=== PATIENT | male | born 1970 | race Caucasian/White ===

== ENCOUNTER 2017-09-01 07:47 | Emergency (ER) | payer OTHER ==
[2017-09-01] MEDS ORDERED: INDOMETHACIN 25 MG CAPSULE PO STA (08:14)
[2017-09-01] MEDS ORDERED: oxyCOD/ACETAMIN 5 MG/325 MG TABLET PO STA (08:14)
--- NOTE | 2017-09-01 08:18 | ED Physician Documentation ---
History of Present Illness - Stated complaint Stated Complaint: FOOT PX - Chief complaint Chief Complaint: Ext Problem - Additonal information Additional information: hx from pt 46 male known hx gout R ankle painful and swollen typical of his gout no fever he has been taking his colchicine s relief he is out of indocin he may have injured it in [employer] as well otherwise no concerns Review of Systems Constitutional: denies: Fever Musculoskeletal: reports: Pain with weight bearing PD PAST MEDICAL HISTORY - Past Surgical History Past Surgical History: No - Present Medications Home Medications: Ambulatory Orders Medication Instructions Recorded Confirmed Indomethacin 25 mg ORAL TITR PRN 12/18/15 12/18/15 Colchicine 09/01/17 Indomethacin [Indocin] 25 - 50 mg PO Q8H PRN #30 capsule 09/01/17 - Allergies Allergies/Adverse Reactions: Allergies Allergy/AdvReac Type Severity Reaction Status Date / Time terbinafine HCl * Allergy Hives Verified 09/01/17 07:55 [From Lamisil] - Social History Does the pt smoke?: No Smoking Status: Never smoker PD ED PE NORMAL - Vitals Vital signs reviewed: Yes - Extremities Extremities: Other (R ankle: swollen, warm, no erythema, able to gently range without sig pain, calf does not appear swollen, + pedal pulse, + motor and sensation) Results - Vitals Vitals: Vital Signs - 24 hr 09/01/17 07:52 Temperature 36.8 C Heart Rate 86 Respiratory 16 Rate Blood Pressure 132/80 H O2 Saturation 97 Oxygen O2 Source Room air - Rads (name of study) ankle Radiology: See rad report (STS no bony abn) PD MEDICAL DECISION MAKING - ED course ED course: given possible injury in [employer] will check ankle xray will add incodn and rx fro same percocet X 1 in ED for acute pain until indocin can start to work do not think this is a septic jt (not red, no fever, able to gently range) Departure - Departure Disposition: 01 Home, Self Care Clinical Impression: Gout Qualifiers: Gout site: ankle Gout etiology: unspecified cause Chronicity: acute Laterality : right Qualified Code(s): M10.9 - Gout, unspecified Condition: Good Instructions: ED Arthritis Gout Follow-Up: Delmer Ross MD [Primary Care Provider] - Prescriptions: Indomethacin [Indocin] 25 - 50 mg PO Q8H PRN #30 capsule PRN Reason: gout pain Comments: The xray is fine - soft tissue swelling but no bone abnormalities This certainly looks like gout I thinking adding the indocin will help. Try to rest and minimize weight bearing as much as possible - perhaps use crutches for a few days Take the indocin with food. Follow up with your PMD if not better in the next few days Return to the ER if worse Forms: Activity restrictions
--- NOTE | 2017-09-01 09:01 | XRAY Report ---
EXAM: RIGHT ANKLE RADIOGRAPHY EXAM DATE: 09/01/2017 08:51 AM. CLINICAL HISTORY: Pain and swelling. COMPARISON: None. TECHNIQUE: 3 views. FINDINGS: Bones: No fracture or focal osseous lesion. Joints: Minimal degenerative change. No effusion. No subluxations. The ankle mortise is normally alig emilie. Soft Tissues: Diffuse soft tissue swelling, pronounced laterally. IMPRESSION: No acute osseous abnormality. [facility] Referring Provider Line: [phone] SITE ID: [id number]
[2017-09-01 09:44] VITALS: BP 138/81
== END 2017-09-01 09:51 | disposition home or self-care (01) ==
LOC: ED 07:47
DX: M10.9 Gout, unspecified (principal)
CPT/HCPCS: 73610; 99283; A9270

== ENCOUNTER 2018-07-13 10:02 | Emergency (ER) | payer OTHER ==
[2018-07-13 10:08] VITALS: BP 154/83
--- NOTE | 2018-07-13 10:59 | ED Physician Documentation ---
PD HPI SKIN - Stated complaint Stated Complaint: LT ANKLE SWELLING - Chief complaint Chief Complaint: Ext Problem - History obtained from History obtained from: Patient - History of Present Illness Timing - onset: How many days ago (2-3) Timing - duration: Days (2-3) Timing - details: Abrupt onset, Still present, Constant Location: LLE (lateral ankle) Quality / character: Painful, Discolored (red) Associated symptoms: No: Fever, Myalgias, N/V/D Contributing factors: Recent illness (had URI symptoms last week, but is improved). No: Exposed to food (had not eaten gout-inducing type foods. No recent change in meds.) Similar symptoms before: Diagnosis (gout - and has taken his colcrys and indocin the past 2-3 days without improvement. Takes them just once daily since can upset his stomach.) Recently seen: Not recently seen Review of Systems Constitutional: denies: Fever, Chills GI: denies: Nausea, Vomiting, Diarrhea, Bloody / black stool Musculoskeletal: reports: Joint pain PD PAST MEDICAL HISTORY - Past Medical History Cardiovascular: None Respiratory: None Neuro: None Endocrine/Autoimmune: None Musculoskeletal: Gout - Past Surgical History Past Surgical History: No - Present Medications Home Medications: Ambulatory Orders Medication Instructions Recorded Confirmed Colchicine 1 tab PO DAILY 09/01/17 07/13/18 Indomethacin [Indocin] 25 - 50 mg PO Q8H PRN #30 capsule 09/01/17 07/13/18 Allopurinol [Zyloprim] 200 mg PO DAILY 07/13/18 07/13/18 Dexamethasone [Decadron] 4 mg PO DAILY #5 tablet 07/13/18 Hydrocodone/Acetaminophen [[place] 1 - 2 each PO Q6H PRN #20 tablet 07/13/18 5-325 Tablet] Ondansetron Odt [Zofran] 4 mg TL Q6H PRN #10 tablet 07/13/18 - Allergies Allergies/Adverse Reactions: Allergies Allergy/AdvReac Type Severity Reaction Status Date / Time terbinafine HCl * Allergy Hives Verified 07/13/18 10:08 [From Lamisil] - Social History Does the pt smoke?: No Smoking Status: Never smoker PD ED PE NORMAL - Vitals Vital signs reviewed: Yes - General General: Alert and oriented X 3, Well developed/nourished, Other (apears in pain) - Derm Derm: Normal color, Warm and dry - Extremities Extremities: Other (left lateral malleolus with rounded area of redness and swelling over the joint. Does not extend beyond. Very tender. No skin lesions there. Small scrape of skin higher on leg without redness at that. ) - Neuro Neuro: No motor deficit, No sensory deficit Results - Vitals Vitals: Vital Signs - 24 hr 07/13/18 10:05 Temperature 36.3 C L Heart Rate 83 Respiratory 20 Rate Blood Pressure 154/83 H O2 Saturation 98 Oxygen O2 Source Room air PD MEDICAL DECISION MAKING - ED course Complexity details: considered differential (seems likely gout and has had similar in the past. He is doing the colchicine and idnocin just once daily. Can increase that, and also add steroids and pain meds. ), d/w patient Departure - Departure Disposition: 01 Home, Self Care Clinical Impression: Exacerbation of gout Condition: Stable Record reviewed to determine appropriate education?: Yes Instructions: ED Arthritis Gout Follow-Up: DM MOORE MD [Primary Care Provider] - Prescriptions: Dexamethasone [Decadron] 4 mg PO DAILY #5 tablet Hydrocodone/Acetaminophen [[place] 5-325 Tablet] 1 - 2 each PO Q6H PRN #20 tablet PRN Reason: Pain Ondansetron Odt [Zofran] 4 mg TL Q6H PRN #10 tablet PRN Reason: Nausea / Vomiting Comments: Drink lots of fluids. Ondansetron if needed for nausea. You could use some antacid such as Maalox or Mylanta if your stomach feels upset. Take your medications with food. I would increase the colchicine and indomethacin to twice daily. Add Decadron steroid anti-inflammatory daily for the next several days as well. Add hydrocodone if needed for pain. Stay off the allopurinol until this gout flareup has cleared and then resume the normal dosing. Recheck if still not improved over the next couple of days. Discharge Date/Time: 07/13/18 12:03
--- NOTE | 2018-07-13 10:59 | ED Physician Documentation ---
PD HPI DYSPNEA - Stated complaint Stated Complaint: LT ANKLE SWELLING - Chief complaint Chief Complaint: Ext Problem PD PAST MEDICAL HISTORY - Past Surgical History Past Surgical History: No - Present Medications Home Medications: Ambulatory Orders Medication Instructions Recorded Confirmed Colchicine 1 tab PO DAILY 09/01/17 07/13/18 Indomethacin [Indocin] 25 - 50 mg PO Q8H PRN #30 capsule 09/01/17 07/13/18 Allopurinol [Zyloprim] 200 mg PO DAILY 07/13/18 07/13/18 - Allergies Allergies/Adverse Reactions: Allergies Allergy/AdvReac Type Severity Reaction Status Date / Time terbinafine HCl * Allergy Hives Verified 07/13/18 10:08 [From Lamisil] - Social History Does the pt smoke?: No Smoking Status: Never smoker Results - Vitals Vitals: Vital Signs - 24 hr 07/13/18 10:05 Temperature 36.3 C L Heart Rate 83 Respiratory 20 Rate Blood Pressure 154/83 H O2 Saturation 98 Oxygen O2 Source Room air
[2018-07-13] MEDS ORDERED: HYDROcod/ACETAM 5/325 MG TABLET PO STA (11:21)
[2018-07-13] MEDS ORDERED: DEXAMETHASONE 10 MG/ML VIAL PO STA (11:21)
[2018-07-13] MEDS ORDERED: ONDANSETRON ODT 4 MG TABLET TL STA (11:22)
[2018-07-13] MEDS ORDERED: CHERRY SYRUP 10 ML UDC PO ONE (11:38)
== END 2018-07-13 12:03 | disposition home or self-care (01) ==
LOC: ED 10:02
DX: M10.9 Gout, unspecified (principal)
CPT/HCPCS: 99283; A9270; Q0162

== ENCOUNTER 2019-03-01 07:59 | Emergency (ER) | payer OTHER ==
[2019-03-01] MEDS ORDERED: CYCLOBENZAPRINE 10 MG TABLET PO STA (08:18)
[2019-03-01] MEDS ORDERED: HYDROcod/ACETAM 5/325 MG TABLET PO STA (08:18)
--- NOTE | 2019-03-01 08:22 | ED Physician Documentation ---
History of Present Illness - Stated complaint Stated Complaint: SHOULDER PX - Chief complaint Chief Complaint: Ext Problem - History obtained from History obtained from: Patient, Family - History of Present Illness Timing: How many days ago (2) Pain level max: 7 Pain level now: 7 - Additonal information Additional information: 48-year-old male with left shoulder pain for the past 2 days. Worse with movement and better with rest. States that he feels a bump on the top of his shoulder. Denies any trauma. Has had similar symptoms in the past. Has been taking ibuprofen without relief. Review of Systems Constitutional: denies: Fever, Chills GI: denies: Vomiting, Diarrhea Skin: denies: Rash Musculoskeletal: denies: Neck pain, Back pain Neurologic: denies: Headache PD PAST MEDICAL HISTORY - Past Medical History Cardiovascular: None Respiratory: None Neuro: None Endocrine/Autoimmune: None Musculoskeletal: Gout - Past Surgical History Past Surgical History: No - Present Medications Home Medications: Ambulatory Orders Medication Instructions Recorded Confirmed Indomethacin [Indocin] 25 - 50 mg PO Q8H PRN #30 capsule 09/01/17 07/13/18 Allopurinol [Zyloprim] 200 mg PO DAILY 07/13/18 07/13/18 Cyclobenzaprine [Flexeril] 10 mg PO TID PRN #20 tablet 03/01/19 Hydrocodone/Acetaminophen 1 - 2 each PO Q6H PRN #14 tablet 03/01/19 [Hydrocodon-Acetaminophen 5-325] Meloxicam [Mobic] 15 mg PO DAILY PRN #20 tablet 03/01/19 - Allergies Allergies/Adverse Reactions: Allergies Allergy/AdvReac Type Severity Reaction Status Date / Time terbinafine HCl * Allergy Hives Verified 03/01/19 08:03 [From Lamisil] - Social History Does the pt smoke?: No Smoking Status: Never smoker PD ED PE NORMAL - Vitals Vital signs reviewed: Yes - General General: Alert and oriented X 3, No acute distress - HEENT HEENT: Moist mucous membranes - Neck Neck: Supple, no meningeal sign - Derm Derm: Warm and dry - Extremities Extremities: Other (Tender to palpation over the left AC joint. Also tender over the trapezial ridge. Shoulder has good internal and external rotation. There is pain with abduction of the arm. Neurovascularly intact.) - Neuro Neuro: Alert and oriented X 3 - Psych Psych: Normal mood, Normal affect Results - Vitals Vitals: Vital Signs - 24 hr 03/01/19 08:01 Temperature 36 C L Heart Rate 73 Respiratory 18 Rate Blood Pressure 142/77 H O2 Saturation 99 Oxygen O2 Source Room air - Rads (name of study) Left shoulder x-ray Radiology: Prelim report reviewed, EMP read contemporaneously, See rad report (normal) PD MEDICAL DECISION MAKING - ED course Complexity details: reviewed results, re-evaluated patient, considered differential, d/w patient, d/w family ED course: 48-year-old male with left shoulder pain. Possible muscular spasm versus rotator cuff inflammation. No acute findings on x-ray. Will place on pain medication muscle relaxants for home and follow-up with his doctor for further c are. Patient counseled regarding signs and symptoms for which I believe and urgent re-evaluation would be necessary. Patient with good understanding of and agreement to plan and is comfortable going home at this time This document was made in part using voice recognition software. While efforts are made to proofread this document, sound alike and grammatical errors may occur. Departure - Departure Disposition: 01 Home, Self Care Clinical Impression: Muscle spasm of left shoulder Condition: Good Instructions: ED Tendinitis Rotator Cuff Follow-Up: DM MOORE MD [Primary Care Provider] - Within 1 week Prescriptions: Cyclobenzaprine [Flexeril] 10 mg PO TID PRN #20 tablet PRN Reason: Spasms Hydrocodone/Acetaminophen [Hydrocodon-Acetaminophen 5-325] 1 - 2 each PO Q6H PRN #14 tablet PRN Reason: pain Meloxicam [Mobic] 15 mg PO DAILY PRN #20 tablet PRN Reason: pain Comments: This should improve over the next few days. Return if you worsen. Follow-up with your doctor for further care. Your x-ray does not show any acute abnormalities today. Do not drink alcohol or drive while on narcotic pain medicine. Note that many narcotic pain relievers also contain tylenol/acetaminophen. Please ensure that your total dose of acetaminophen from all sources does not exceed 3 grams (3000mg) per day. You may constipated on this medication, take a stool softener such as "Colace" twice a day while you are on it. Also recommend a yxzb-ehh-egnoiez laxative such as senna or MiraLAX any day that you do not have a bowel movement. If you received narcotic pain medication in the emergency department, do not drive or operate machinery for the next 24 hours.
--- NOTE | 2019-03-01 08:51 | XRAY Report ---
Reason: L shoulder pain. no injury Procedure Date: 03/01/2019 Accession Number: [id number] / [id number] Procedure: XR - Shoulder 3 View LT CPT Code: FULL RESULT: EXAM: LEFT SHOULDER RADIOGRAPHY EXAM DATE: 03/01/2019 08:31 AM. CLINICAL HISTORY: L shoulder pain. no injury. COMPARISON: None. TECHNIQUE: 3 views. FINDINGS: Bones: No fractures or bone lesions. Joints: Mild AC joint DJD. Glenohumeral joint appears preserved. Soft Tissues: Unremarkable. IMPRESSION: 1. No acute osseous abnormality. [facility]
[2019-03-01 09:10] VITALS: BP 128/78
== END 2019-03-01 09:05 | disposition home or self-care (01) ==
LOC: ED 07:59
DX: M62.838 Other muscle spasm (principal)
CPT/HCPCS: 73030; 99283; 99284; A9270

== ENCOUNTER 2021-01-19 19:26 | Emergency (ER) | payer OTHER ==
[2021-01-19] MEDS ORDERED: HYDROmorphone 1 MG/ML CARPUJECT IM STA (20:15)
[2021-01-19] MEDS ORDERED: KETOROLAC 15 MG/ML VIAL IM STA (20:15)
--- NOTE | 2021-01-19 20:19 | ED Physician Documentation ---
PD HPI BACK PAIN - Stated complaint Stated Complaint: LOW BACK PX - Chief complaint Chief Complaint: Back Pain - History obtained from History obtained from: Patient - Additional information Additional information: Developed atraumatic left low back pain that radiates a little bit into the buttock 2 days ago. Worsened today. Worse with bending and twisting. No urinary complaints, no incontinence. No saddle anesthesia, no fevers. Review of Systems Constitutional: reports: Reviewed and negative Eyes: reports: Reviewed and negative Ears: reports: Reviewed and negative Nose: reports: Reviewed and negative Throat: reports: Reviewed and negative Cardiac: reports: Reviewed and negative PD PAST MEDICAL HISTORY - Past Medical History Past Medical History: Yes Cardiovascular: Hypertension Respiratory: None Neuro: None Endocrine/Autoimmune: None GI: None : None HEENT: None Psych: None Musculoskeletal: Osteoarthritis, Gout Derm: None - Past Surgical History Past Surgical History: No - Present Medications Home Medications: Ambulatory Orders Medication Instructions Recorded Confirmed Indomethacin [Indocin] 25 - 50 mg PO Q8H PRN #30 capsule 09/01/17 07/13/18 allopurinoL [Zyloprim] 200 mg PO DAILY 07/13/18 07/13/18 Cyclobenzaprine [Flexeril] 10 mg PO TID PRN #20 tablet 03/01/19 Hydrocodone/Acetaminophen 1 - 2 each PO Q6H PRN #14 tablet 03/01/19 [Hydrocodon-Acetaminophen 5-325] Meloxicam [Mobic] 15 mg PO DAILY PRN #20 tablet 03/01/19 HYDROcod/ACETAM 5/325 [[place] 5/325] 1 ea PO DAILY #5 tablet 02/25/20 Cyclobenzaprine [Flexeril] 10 mg PO TID PRN #10 tablet 01/19/21 HYDROcod/ACETAM 5/325 [[place] 5/325] 1 - 2 tab PO Q6H PRN #15 tablet 01/19/21 Ibuprofen [Motrin] 800 mg PO Q8H PRN #30 tablet 01/19/21 Lidocaine Patch 5% [Lidoderm Patch] 1 patch TOP DAILY PRN #10 patch 01/19/21 - Allergies Allergies/Adverse Reactions: Allergies Allergy/AdvReac Type Severity Reaction Status Date / Time terbinafine HCl * Allergy Hives Verified 01/19/21 19:35 [From Lamisil] - Social History Does the pt smoke?: No Smoking Status: Never smoker Does the pt drink ETOH?: Yes Does the pt have substance abuse?: No - Immunizations Immunizations are current?: No Immunizations: TDAP >10years/unknown - POLST Patient has POLST: No PD ED PE NORMAL - Vitals Vital signs reviewed: Yes - General General: Alert and oriented X 3, No acute distress - Abdomen Abdomen: Non tender, Non distended - Back Back: Other (Muscular tenderness of the left paralumbar muscles, winces with motion but comfortable at rest, no midline spinal tenderness, no rash, no CVA tenderness.) - Extremities Extremities: Other (The patient has equal and normal Achilles and patellar reflexes bilaterally. Normal sensation in all areas of the legs. Patient denies saddle anesthesia. Normal strength in flexion-extension at the ankles, knees, and flexion of the hips.) - Neuro Neuro: Alert and oriented X 3, Normal speech Results - Vitals Vitals: Vital Signs - 24 hr 01/19/21 19:33 Temperature 36.4 C L Heart Rate 71 Respiratory 16 Rate Blood Pressure 169/95 H O2 Saturation 98 Oxygen O2 Source Room air PD MEDICAL DECISION MAKING - ED course ED course: This patient has seemingly uncomplicated musculoskeletal back pain. The patient has no "red flags." Specifically denies IV drug use, fevers, incontinence, saddle anesthesia. Spinal epidural abscess was considered, given that the patient has no fever, is not diabetic, has no spinal tenderness, does not use IV drugs, and has no bilateral neurologic symptoms, the diagnosis of spinal epidural abscess is considered exceedingly unlikely. I am prescribing a short course of short-acting opioid pain medication for this patient. I have reviewed the patients DESK ATTENDANT and no concerning findings were noted. I have discussed that the opioids are for short term therapy only, and will not be refilled from the ED. Departure - Departure Disposition: 01 Home, Self Care Clinical Impression: Back pain Condition: Good Record reviewed to determine appropriate education?: Yes Instructions: ED Neck Back Pain General Prescriptions: Cyclobenzaprine [Flexeril] 10 mg PO TID PRN #10 tablet PRN Reason: Spasms Lidocaine Patch 5% [Lidoderm Patch] 1 patch TOP DAILY PRN #10 patch PRN Reason: pain Ibuprofen [Motrin] 800 mg PO Q8H PRN #30 tablet PRN Reason: PAIN &/OR FEVER HYDROcod/ACETAM 5/325 [[place] 5/325] 1 - 2 tab PO Q6H PRN #15 tablet PRN Reason: Pain Comments: Call your doctor to arrange a follow-up appointment, make the next available appointment. In the interim, return anytime if worse or if new symptoms develop. I am prescribing a short course of narcotic pain medication for you. These are potentially dangerous and addictive medications that should be used carefully. These medications may constipate you. Take an ebwl-rod-qthqdho stool softener (docusate) twice daily with plenty of water while taking these medications. If you go 24 hours without a bowel movement, take exln-ilu-czitchw miralax, per package instructions. Do not drink or drive while taking these medications. If you received narcotic or sedating medications while in the emergency department, do not drive for 24 hours. Store this medication in a safe, secure place and out of reach of children. It is a violation of federal law to give or sell this medication to another person or to use in a manner other than prescribed. The ED will not refill narcotic prescriptions, including prescriptions lost or stolen. To dispose of unwanted medications: 1. [facility] at [address] in [place] has a medication drop box. They accept prescription medications (in pill form) Saturday through Saturday 9:00 a.m. to 5:00 p.m. 2. The [facility] [employer] accepts prescription medications (in pill form only) for disposal year round. Call for more information. 3. Contact the [facility] for the next [facility] sponsored prescription drug collection event. , [phone], or [phone]; Note that many narcotic pain relievers also contain Tylenol/acetaminophen. Please ensure that your total dose of acetaminophen from all sources does not exceed 3 g (3000 mg) per day. Forms: Activity restrictions
[2021-01-19 20:34] VITALS: BP 155/87
== END 2021-01-19 20:34 | disposition home or self-care (01) ==
LOC: ED 19:26
DX: M54.5 Low back pain (principal); I10 Essential (primary) hypertension
CPT/HCPCS: 96372; 99283; 99284; J1170

== ENCOUNTER 2021-08-10 08:02 | Emergency (ER) | payer OTHER ==
--- NOTE | 2021-08-10 08:12 | ED Physician Documentation ---
PD HPI LOWER EXT INJURY - Stated complaint Stated Complaint: LT KNEE PX - Chief complaint Chief Complaint: Ext Problem - History obtained from History obtained from: Patient - History of Present Illness PD HPI LOW EXT INJURY LOCATION: Left, Knee Type of injury: Other (He did do a lot of yard work on Saturday without any apparent injury during that time. Onset of knee pain later that night and following day feeling consistent with prior gout.). No: Fall, Twist Where injury occurred: Home Timing - onset: How many days ago (5) Timing - duration: Days (5) Timing - details: Gradual onset, Still present Improved by: Rest. No: Meds Worsened by: Moving, Palpating Associated symptoms: Swelling, Other (he denies locking, clicking nor giving out.). No: Weakness, Numbness Similar symptoms before: Diagnosis (gout episodes in the past) Recently seen: Clinic (He went to [facility] 3 days ago. Had an x-ray which he says showed some arthritis. They are concerned about possible ligament injury. He has knee brace. No medications prescribed. However he was taking indomethacin twice daily and colchicine daily the last 3 days without improvement.) Review of Systems Constitutional: denies: Fever, Chills Nose: denies: Rhinorrhea / runny nose, Congestion Throat: denies: Dental pain / toothache, Oral lesions / sores, Sore throat Respiratory: denies: Cough GI: denies: Vomiting, Diarrhea (but has loose stools after starting the colchicine daily.) Skin: denies: Rash, Lesions PD PAST MEDICAL HISTORY - Past Medical History Cardiovascular: Hypertension Respiratory: None Neuro: None Endocrine/Autoimmune: None GI: None : None HEENT: None Psych: None Musculoskeletal: Osteoarthritis, Gout Derm: None - Past Surgical History Past Surgical History: No - Present Medications Home Medications: Ambulatory Orders Medication Instructions Recorded Confirmed Indomethacin [Indocin] 25 - 50 mg PO Q8H PRN #30 capsule 09/01/17 07/13/18 allopurinoL [Zyloprim] 200 mg PO DAILY 07/13/18 07/13/18 Cyclobenzaprine [Flexeril] 10 mg PO TID PRN #20 tablet 03/01/19 Hydrocodone/Acetaminophen 1 - 2 each PO Q6H PRN #14 tablet 03/01/19 [Hydrocodon-Acetaminophen 5-325] Meloxicam [Mobic] 15 mg PO DAILY PRN #20 tablet 03/01/19 HYDROcod/ACETAM 5/325 [[place] 5/325] 1 ea PO DAILY #5 tablet 02/25/20 Cyclobenzaprine [Flexeril] 10 mg PO TID PRN #10 tablet 01/19/21 HYDROcod/ACETAM 5/325 [[place] 5/325] 1 - 2 tab PO Q6H PRN #15 tablet 01/19/21 Ibuprofen [Motrin] 800 mg PO Q8H PRN #30 tablet 01/19/21 Lidocaine Patch 5% [Lidoderm Patch] 1 patch TOP DAILY PRN #10 patch 01/19/21 Acetaminophen [Acetaminophen Extra 500 mg PO QID PRN #50 tablet 08/10/21 Strength] Colchicine 0.6 mg PO BID PRN #14 tablet 08/10/21 dexAMETHasone [Decadron] 4 mg PO DAILY #7 tablet 08/10/21 oxyCODONE [Roxicodone] 5 mg PO Q6H PRN #15 tablet 08/10/21 - Allergies Allergies/Adverse Reactions: Allergies Allergy/AdvReac Type Severity Reaction Status Date / Time terbinafine HCl * Allergy Hives Verified 08/10/21 08:12 [From Lamisil] - Social History Does the pt smoke?: No Smoking Status: Never smoker Does the pt drink ETOH?: Yes Does the pt have substance abuse?: No - Immunizations Immunizations are current?: No Immunizations: TDAP >10years/unknown - POLST Patient has POLST: No PD ED PE NORMAL - Vitals Vital signs reviewed: Yes - General General: Alert and oriented X 3, Well developed/nourished, Other (appears in pain with ROM of the knee.) - Derm Derm: Normal color, Warm and dry, No rash - Extremities Extremities: Other (The left knee with some mild to moderate effusion. There is warmth felt anteriorly. No redness. No skin sores nor lesions. Stress testing had pain with cruciate testing but no obvious laxity. Collateral testing witho ut pain or laxity. Rotational movement hurts but no crepitance or clicking.) - Neuro Neuro: Alert and oriented X 3, No motor deficit, No sensory deficit Results - Vitals Vitals: Vital Signs - 24 hr 08/10/21 08:10 Temperature 36.6 C Heart Rate 89 Respiratory 16 Rate Blood Pressure 164/84 H O2 Saturation 97 Oxygen O2 Source Room air PD MEDICAL DECISION MAKING - ED course Complexity details: reviewed results ([facility] so I did not see a reason for redoing those.), re-evaluated patient (He has not had improvement with indomethacin and colchicine and light duty for the last several days. We can change to steroid with colchicine and add Tylenol and pain medicine as needed with off work for 2 days.), considered differential (This seems likely to be a gout or arthritis/tendonitis flareup. Most likely gout with the degree of pain. Consideration of some of the ligaments in the knee but this seem sturdy on exam though it hurts. No abrupt injury noted.), d/w patient Departure - Departure Disposition: 01 Home, Self Care Clinical Impression: Knee pain, acute Qualifiers: Laterality: left Qualified Code(s): M25.562 - Pain in left knee Gout attack Qualifiers: Gout site: knee Gout etiology: unspecified cause Laterality: left Qualified Code(s): M10.9 - Gout, unspecified Condition: Stable Record reviewed to determine appropriate education?: Yes Instructions: ED Arthritis Gout Follow-Up: [facility] [Provider Group] Prescriptions: Acetaminophen [Acetaminophen Extra Strength] 500 mg PO QID PRN #50 tablet PRN Reason: Pain Colchicine 0.6 mg PO BID PRN #14 tablet PRN Reason: Pain dexAMETHasone [Decadron] 4 mg PO DAILY #7 tablet oxyCODONE [Roxicodone] 5 mg PO Q6H PRN #15 tablet PRN Reason: Pain Comments: This does seem likely to be a gout exacerbation or tendinitis in the knee. The knee brace you have is reasonable. I would have you continue the colchicine once or twice daily for the next few days. Discontinue your indomethacin and instead use dexamethasone daily for the next week. This is a steroid anti-inflammatory and see if it helps better on this flareup. Off work for couple of days to help reduce movement and irritation of the knee. Tylenol 500 mg 4 times a day for pain and add oxycodone every 6 hours if needed for worse pain. I transmitted your prescriptions to [facility] pharmacy in [place]. I am prescribing a short course of narcotic pain medication for you. These are potentially dangerous and addictive medications that should be used carefully. These medications may constipate you. Take an [id number] stool softener such as docusate twice daily with plenty of water while taking these medicat ions. If you go 24 hours without a bowel movement, take [id number] MiraLAX, per package instructions. Do not drink or drive while taking these medications. If you received narcotic or sedating medications while in the emergency department do not drive for 24 hours. Store this medication in a safe, secure place and out of reach of children. It is a violation of federal law to give or sell this medication to another person or to use in a manner other than prescribed. The ED will not refill narcotic prescriptions, including prescriptions lost or stolen. You can dispose of unwanted medications at the [facility] office or at several pharmacies such as [facility]. Forms: Activity restrictions
[2021-08-10 08:13] VITALS: BP 164/84
[2021-08-10] MEDS ORDERED: DEXAMETHASONE 10 MG/ML VIAL PO STA (08:40)
[2021-08-10] MEDS ORDERED: CHERRY SYRUP 10 ML UDC PO ONE (08:40)
[2021-08-10] MEDS ORDERED: oxyCODONE 5 MG TABLET PO STA (08:40)
[2021-08-10] MEDS ORDERED: ACETAMINOPHEN 500 MG TABLET PO STA (08:40)
== END 2021-08-10 08:51 | disposition home or self-care (01) ==
LOC: ED 08:02
DX: M25.562 Pain in left knee (principal); M10.9 Gout, unspecified; I10 Essential (primary) hypertension
CPT/HCPCS: 99283; 99284; A9270

== ENCOUNTER 2022-05-12 23:35 | Emergency (ER) | payer OTHER ==
[2022-05-13 00:03] VITALS: BP 156/78
[2022-05-13] MEDS ORDERED: LIDOCAINE PATCH 5% TOP STA (01:10)
[2022-05-13] MEDS ORDERED: oxyCODONE/ACET 5/325 Prepack 4 PO STA (01:10)
[2022-05-13] MEDS ORDERED: predniSONE 20 MG TABLET PO STA (01:10)
--- NOTE | 2022-05-13 01:20 | ED Physician Documentation ---
History of Present Illness - Stated complaint Stated Complaint: R KNEE PX - Chief complaint Chief Complaint: Ext Problem - History obtained from History obtained from: Patient - Additonal information Additional information: Patient presenting for evaluation of right knee pain that is been present since yesterday. He reports a history of gout and normally gets gout in his left knee. He denies any injury or trauma.This feels similar to previous episodes of gout. He is unsure of any recent triggers. He did have 1 oxycodone left from a prior prescription which she took today along with colchicine and indomethacin. He denies any fevers. He recently has had a URI symptoms with a cough which has been improving. He denies chest pain, difficulty breathing, abdominal pain, Recent travel or immobilization, history of DVT. Review of Systems Constitutional: denies: Fever Nose: denies: Congestion Cardiac: denies: Chest pain / pressure Respiratory: reports: Cough. denies: Dyspnea GI: denies: Abdominal Pain Musculoskeletal: reports: Joint pain Neurologic: denies: Headache PD PAST MEDICAL HISTORY - Past Medical History Past Medical History: Yes Cardiovascular: Hypertension Respiratory: None Neuro: None Endocrine/Autoimmune: None GI: None : None HEENT: None Psych: None Musculoskeletal: Osteoarthritis, Gout Derm: None - Past Surgical History Past Surgical History: No - Present Medications Home Medications: Ambulatory Orders Medication Instructions Recorded Confirmed Indomethacin [Indocin] 25 - 50 mg PO Q8H PRN #30 capsule 09/01/17 05/13/22 Colchicine 0.6 mg PO BID PRN #14 tablet 08/10/21 05/13/22 oxyCODONE [Roxicodone] 5 mg PO Q6H PRN #15 tablet 08/10/21 05/13/22 Lidocaine Patch 5% [Lidoderm Patch] 1 patch TOP DAILY PRN #10 patch 05/13/22 Oxycodone HCl/Acetaminophen 1 - 2 each PO Q6H PRN #14 tablet 05/13/22 [Percocet 5-325 mg Tablet] predniSONE [Deltasone] 40 mg PO DAILY 5 Days #10 tablet 05/13/22 - Allergies Allergies/Adverse Reactions: Allergies Allergy/AdvReac Type Severity Reaction Status Date / Time terbinafine HCl * Allergy Hives Verified 05/13/22 00:03 [From Lamisil] - Social History Does the pt smoke?: No Smoking Status: Never smoker Does the pt drink ETOH?: Yes Does the pt have substance abuse?: No - Immunizations Immunizations are current?: No Immunizations: TDAP >10years/unknown - POLST Patient has POLST: No PD ED PE NORMAL - General General: Alert and oriented X 3, No acute distress, Well developed/nourished - HEENT HEENT: Atraumatic, Moist mucous membranes - Neck Neck: Supple, no meningeal sign - Cardiac Cardiac: RRR, Strong equal pulses - Respiratory Respiratory: No respiratory distress, Clear bilaterally - Abdomen Abdomen: Soft, Non tender - Extremities Extremities: No deformity, No calf tenderness / cord, Other (R knee swelling/no erythema; able to fully extend; Pain with flexion; Pedal pulses intact) Results - Vitals Vitals: Vital Signs - 24 hr 05/12/22 23:55 Temperature 36.6 C Heart Rate 62 Respiratory 16 Rate Blood Pressure 156/78 H O2 Saturation 98 Oxygen O2 Source Room air PD MEDICAL DECISION MAKING - ED course ED course: Patient with atraumatic right knee pain.Has swelling localized to right knee and not elsewhere in extremity. No risk factors for DVT and no calf tenderness. No fever or erythema to suggest a septic joint. Has a history of gout with similar presentations in the past although with the other knee.Patient counseled on treatment plan as well as concerning symptoms to return for. Departure - Departure Disposition: 01 Home, Self Care Clinical Impression: Right knee pain Qualifiers: Chronicity: acute Qualified Code(s): M25.561 - Pain in right knee Gout attack Qualifiers: Gout site: knee Gout etiology: unspecified cause Condition: Stable Instructions: Gout Attack Tx Prescriptions: predniSONE [Deltasone] 40 mg PO DAILY 5 Days #10 tablet Lidocaine Patch 5% [Lidoderm Patch] 1 patch TOP DAILY PRN #10 patch PRN Reason: pain Oxycodone HCl/Acetaminophen [Percocet 5-325 mg Tablet] 1 - 2 each PO Q6H PRN #14 tablet PRN Reason: pain Comments: Please use the knee immobilizer and crutches to stay off your right leg while you still are having pain. I have sent prescriptions for pain medication, steroids and lidocaine patches to [facility] in [place].Please continue with using indomethacin times a day And colchicine twice a day until your symptoms improve. I would recommend close follow-up with your primary care doctor. If you have any worsening symptoms please consider return to the emergency department. Discharge Date/Time: 05/13/22 01:40
== END 2022-05-13 01:40 | disposition home or self-care (01) ==
LOC: ED 23:35
DX: M25.561 Pain in right knee (principal); M10.9 Gout, unspecified
CPT/HCPCS: 99283; A9270; J7512

== ENCOUNTER 2022-07-27 21:07 | Emergency (ER) | payer OTHER ==
--- OUTSIDE RECORDS SUMMARY | 2022-07-27 21:56 | EXTERNAL MEDICAL SUMMARY RPT | Continuity of Care Document ---
:1970 Author Organization [facility] Address [address] [place] [address] Phone Care Team Providers Name Role Phone Unavailable Unavailable Unavailable Valentino Davis Md Unavailable Unavailable Mcfaddenyola SharifRot Clemencia Unavailable Unavailable Bogdan SharifRot Clemencia Unavailable Unavailable Allergies and Intolerances date description facility type (no date) TERBINAFINE HCL All (unknown) Encounters No information. Functional Status No information. Immunizations No information. Medications date description facility 2022-07-06 00:00 dexamethasone All 2022-07-11 00:00 dexamethasone All 2022-07-12 00:00 dexamethasone All 2022-07-13 00:00 dexamethasone All 2022-07-06 00:00 colchicine All 2022-07-11 00:00 colchicine All 2022-07-12 00:00 colchicine All 2022-07-13 00:00 colchicine All 2022-07-06 00:00 oxycodone All 2022-07-11 00:00 oxycodone All 2022-07-12 00:00 oxycodone All 2022-07-13 00:00 oxycodone All 2022-07-06 00:00 oxycodone All 2022-07-11 00:00 oxycodone All 2022-07-12 00:00 oxycodone All 2022-07-13 00:00 oxycodone All 2022-07-06 00:00 oxymetazoline All 2022-07-11 00:00 oxymetazoline All 2022-07-12 00:00 oxymetazoline All 2022-07-13 00:00 oxymetazoline All 2022-07-06 00:00 oxymetazoline All 2022-07-11 00:00 oxymetazoline All 2022-07-12 00:00 oxymetazoline All 2022-07-13 00:00 oxymetazoline All 2022-07-06 00:00 colchicine All 2022-07-11 00:00 colchicine All 2022-07-12 00:00 colchicine All 2022-07-13 00:00 colchicine All 2022-07-06 00:00 dexamethasone All 2022-07-11 00:00 dexamethasone All 2022-07-12 00:00 dexamethasone All 2022-07-13 00:00 dexamethasone All 2022-07-06 00:00 celecoxib All 2022-07-11 00:00 celecoxib All 2022-07-12 00:00 celecoxib All 2022-07-13 00:00 celecoxib All 2022-07-06 00:00 dexamethasone All 2022-07-11 00:00 dexamethasone All 2022-07-12 00:00 dexamethasone All 2022-07-13 00:00 dexamethasone All 2022-07-06 00:00 oxycodone All 2022-07-11 00:00 oxycodone All 2022-07-12 00:00 oxycodone All 2022-07-13 00:00 oxycodone All 2022-07-06 00:00 oxymetazoline All 2022-07-11 00:00 oxymetazoline All 2022-07-12 00:00 oxymetazoline All 2022-07-13 00:00 oxymetazoline All 2022-07-06 00:00 colchicine All 2022-07-11 00:00 colchicine All 2022-07-12 00:00 colchicine All 2022-07-13 00:00 colchicine All 2022-07-06 00:00 celecoxib All 2022-07-11 00:00 celecoxib All 2022-07-12 00:00 celecoxib All 2022-07-13 00:00 celecoxib All 2022-07-06 00:00 celecoxib All 2022-07-11 00:00 celecoxib All 2022-07-12 00:00 celecoxib All 2022-07-13 00:00 celecoxib All 2022-07-06 00:00 dexamethasone All 2022-07-11 00:00 dexamethasone All 2022-07-12 00:00 dexamethasone All 2022-07-13 00:00 dexamethasone All 2022-07-06 00:00 oxycodone All 2022-07-11 00:00 oxycodone All 2022-07-12 00:00 oxycodone All 2022-07-13 00:00 oxycodone All 2022-07-06 00:00 celecoxib All 2022-07-11 00:00 celecoxib All 2022-07-12 00:00 celecoxib All 2022-07-13 00:00 celecoxib All 2022-07-06 00:00 colchicine All 2022-07-11 00:00 colchicine All 2022-07-12 00:00 colchicine All 2022-07-13 00:00 colchicine All Problems date description facility 2022-06-06 07:38 Pain in [facility] 2022-07-06 00:00 Cervical radiculitis All 2022-07-06 00:00 Cervical radiculitis All 2022-07-06 00:00 Cervical radiculitis All 2022-07-06 00:00 Non-alcoholic fatty liver All 2022-07-06 00:00 Non-alcoholic fatty liver All 2022-07-06 00:00 Non-alcoholic fatty liver All 2022-07-06 00:00 Localized, primary osteoarthritis All 2022-07-06 00:00 Localized, primary osteoarthritis All 2022-07-06 00:00 Localized, primary osteoarthritis All 2022-07-06 00:00 Plantar fasciitis All 2022-07-06 00:00 Plantar fasciitis All 2022-07-06 00:00 Plantar fasciitis All 2022-07-06 00:00 Hypertensive disorder All 2022-07-06 00:00 Hypertensive disorder All 2022-07-06 00:00 Hypertensive disorder All 2022-07-06 00:00 Unspecified essential hypertension All 2022-07-06 00:00 Unspecified essential hypertension All 2022-07-06 00:00 Unspecified essential hypertension All 2022-07-06 00:00 Patellofemoral stress syndrome All 2022-07-06 00:00 Patellofemoral stress syndrome All 2022-07-06 00:00 Patellofemoral stress syndrome All 2022-07-06 00:00 Other chronic nonalcoholic liver diseas e All 2022-07-06 00:00 Other chronic nonalcoholic liver diseas e All 2022-07-06 00:00 Other chronic nonalcoholic liver diseas e All 2022-07-06 00:00 Osteoarthrosis, localized, primary, inv olving All lower leg 2022-07-06 00:00 Osteoarthrosis, localized, primary, inv olving All lower leg 2022-07-06 00:00 Osteoarthrosis, localized, primary, inv olving All lower leg 2022-07-06 00:00 Pain in joint involving lower leg All 2022-07-06 00:00 Pain in joint involving lower leg All 2022-07-06 00:00 Pain in joint involving lower leg All 2022-07-06 00:00 Brachial neuritis or radiculitis NOS A ll 2022-07-06 00:00 Brachial neuritis or radiculitis NOS A ll 2022-07-06 00:00 Brachial neuritis or radiculitis NOS A ll 2022-07-06 00:00 Prepatellar bursitis All 2022-07-06 00:00 Prepatellar bursitis All 2022-07-06 00:00 Prepatellar bursitis All 2022-07-06 00:00 Gout All 2022-07-06 00:00 Gout All 2022-07-06 00:00 Gout All 2022-07-06 00:00 Essential (primary) hypertension All 2022-07-06 00:00 Essential (primary) hypertension All 2022-07-06 00:00 Essential (primary) hypertension All 2022-07-06 00:00 Fatty (change of) liver, not elsewhere All classified 2022-07-06 00:00 Fatty (change of) liver, not elsewhere All classified 2022-07-06 00:00 Fatty (change of) liver, not elsewhere All classified 2022-07-06 00:00 Gout, unspecified All 2022-07-06 00:00 Gout, unspecified All 2022-07-06 00:00 Gout, unspecified All 2022-07-06 00:00 Unilateral primary osteoarthritis, left knee All 2022-07-06 00:00 Unilateral primary osteoarthritis, left knee All 2022-07-06 00:00 Unilateral primary osteoarthritis, left knee All 2022-07-06 00:00 Patellofemoral disorders, unspecified k nee All 2022-07-06 00:00 Patellofemoral disorders, unspecified k nee All 2022-07-06 00:00 Patellofemoral disorders, unspecified k nee All 2022-07-06 00:00 Radiculopathy, cervical region All 2022-07-06 00:00 Radiculopathy, cervical region All 2022-07-06 00:00 Radiculopathy, cervical region All 2022-07-06 00:00 Prepatellar bursitis, unspecified knee All 2022-07-06 00:00 Prepatellar bursitis, unspecified knee All 2022-07-06 00:00 Prepatellar bursitis, unspecified knee All 2022-07-06 00:00 Plantar fascial fibromatosis All 2022-07-06 00:00 Plantar fascial fibromatosis All 2022-07-06 00:00 Plantar fascial fibromatosis All 2022-07-11 00:00 Knee pain All 2022-07-11 00:00 Knee pain All 2022-07-11 00:00 Pain in joint involving lower leg All 2022-07-11 00:00 Pain in joint involving lower leg All 2022-07-11 00:00 Pain in left knee All 2022-07-11 00:00 Pain in left knee All 2022-07-12 00:00 Idiopathic osteoarthritis All 2022-07-12 00:00 Idiopathic osteoarthritis All 2022-07-12 00:00 Osteoarthrosis, localized, primary, inv olving All lower leg 2022-07-12 00:00 Osteoarthrosis, localized, primary, inv olving All lower leg 2022-07-12 00:00 Bilateral primary osteoarthritis of kne e All 2022-07-12 00:00 Bilateral primary osteoarthritis of kne e All Procedures No information. Results/Labs test date author facility value unit interpret ation Result panel 1 (unknown) (no (unknown) (unknown) (no value) (units (unk nown) date) unknown) (unknown) (no (unknown) (unknown) [id number] (units (unkno wn) date) unknown) (unknown) (no (unknown) (unknown) 1. Peripheral (units ( unknown) date) displacement of unknown) medial meniscus with oblique tear involving (unknown) (no (unknown) (unknown) 06/06/22 (units (unkno wn) date) unknown) (unknown) (no (unknown) (unknown) [address] [place] [address] (units (unknown) date) unknown) (unknown) (no (unknown) (unknown) 2. Suggestion of (units (unknown) date) mild distal ACL unknown) sprain/partial-thic kness tear. No full (unknown) (no (unknown) (unknown) 3. Very low-grade (units (unknown) date) MCL sprain. Low to unknown) moderate grade LCL sprain/partial (unknown) (no (unknown) (unknown) 4. Distal (units (unkn own) date) quadriceps unknown) tendinosis/low-grad e partial-thickness tear at its (unknown) (no (unknown) (unknown) 5. Mild (units (unkno wn) date) tricompartmental unknown) osteoarthritis and low-grade chondromalacia. No (unknown) (no (unknown) (unknown) Accession Number: (units (unknown) date) [id number] unknown) (unknown) (no (unknown) (unknown) Age/Sex: 51 / M (units (unknown) date) Date of Service: unknown) (unknown) (no (unknown) (unknown) [place], [place] (units ( unknown) date) [id number] unknown) (unknown) (no (unknown) (unknown) Anterior (units (unkno wn) date) structures: Distal unknown) quadriceps tendinosis and low-grade partial (unknown) (no (unknown) (unknown) Approved by: Jez Wongunits (unknown) date) Veto Armstrong on unknown) 06/06/2022 at 9:17 (unknown) (no (unknown) (unknown) Bones and (units (unkn own) date) cartilage: Mild unknown) edema and subcortical cystic changes are noted (unknown) (no (unknown) (unknown) COMPARISON: None. (units (unknown) date) unknown) (unknown) (no (unknown) (unknown) Cruciate (units (unkno wn) date) ligaments: The unknown) anterior cruciate ligament is mildly thickened with (unknown) (no (unknown) (unknown) : 1970 (units (unknown) date) Acct:[id number] unknown) (unknown) (no (unknown) (unknown) Dictated by: Jez Wongunits (unknown) date) Veto Armstrong on unknown) 06/06/2022 at 9:14 (unknown) (no (unknown) (unknown) FINDINGS: (units (unkn own) date) unknown) (unknown) (no (unknown) (unknown) IMPRESSION: (units (un known) date) unknown) (unknown) (no (unknown) (unknown) INDICATIONS: Pain (units (unknown) date) in left knee unknown) (unknown) (no (unknown) (unknown) Image quality: (units (unknown) date) Excellent. unknown) (unknown) (no (unknown) (unknown) [facility] (units (unknown) date) unknown) (unknown) (no (unknown) (unknown) Joint space: There (units (unknown) date) is small knee joint unknown) fluid. No Johnson's cyst. Normal (unknown) (no (unknown) (unknown) Lateral (units (unkno wn) date) structures: The unknown) lateral collateral ligament is thickened with (unknown) (no (unknown) (unknown) Loc: MRI (units (unkno wn) date) unknown) (unknown) (no (unknown) (unknown) Magnetic Resonance (units (unknown) date) Report unknown) (unknown) (no (unknown) (unknown) Medial structures: (units (unknown) date) The medial unknown) collateral ligament appears mildly thickened. (unknown) (no (unknown) (unknown) Menisci: (units (unkno wn) date) Peripheral unknown) displacement of medial meniscus bowing medial collateral (unknown) (no (unknown) (unknown) Mild (units (unkno wn) date) tricompartmental unknown) osteoarthritis and low-grade chondromalacia is seen. (unknown) (no (unknown) (unknown) Noncontrast (units (un known) date) sagittal PD fast unknown) spin echo and T2 fast spin echo with fat (unknown) (no (unknown) (unknown) Ordering Provider: (units (unknown) date) Eric Medina D.O. unknown) (unknown) (no (unknown) (unknown) PROCEDURE: MR KNEE (units (unknown) date) LT WO CON unknown) (unknown) (no (unknown) (unknown) Patellar (units (unkno wn) date) unknown) (unknown) (no (unknown) (unknown) Patient: (units (unkno wn) date) Lux Mcdonald MR#: unknown) M00 (unknown) (no (unknown) (unknown) Procedure: MR knee (units (unknown) date) LT wo con unknown) (unknown) (no (unknown) (unknown) Signed (units (unkno wn) date) unknown) (unknown) (no (unknown) (unknown) TECHNIQUE: (units (unk nown) date) unknown) (unknown) (no (unknown) (unknown) The meniscal root (units (unknown) date) ligaments appear unknown) intact. (unknown) (no (unknown) (unknown) The (units (unkno wn) date) unknown) (unknown) (no (unknown) (unknown) alignment is (units (u nknown) date) normal. No femoral unknown) trochlear dysplasia or ventral trochlear (unknown) (no (unknown) (unknown) anserinus tendons (units (unknown) date) appear normal. No unknown) abnormal bursal fluid. (unknown) (no (unknown) (unknown) appear (units (unkno wn) date) unknown) (unknown) (no (unknown) (unknown) appearing (units (unkn own) date) unknown) (unknown) (no (unknown) (unknown) appears (units (unkno wn) date) unknown) (unknown) (no (unknown) (unknown) at its superior (units (unknown) date) patellar insertion unknown) is seen. Patellar tendon is intact.. (unknown) (no (unknown) (unknown) dislocation. Small (units (unknown) date) joint effusion, no unknown) gross loose bodies. (unknown) (no (unknown) (unknown) echo with (units (unkn own) date) unknown) (unknown) (no (unknown) (unknown) edema in the (units (u nknown) date) infrapatellar fat unknown) pad. (unknown) (no (unknown) (unknown) fat saturation, (units (unknown) date) and axial PD fast unknown) spin echo with fat saturation through the (unknown) (no (unknown) (unknown) fracture line. (units (unknown) date) unknown) (unknown) (no (unknown) (unknown) fracture or (units (un known) date) unknown) (unknown) (no (unknown) (unknown) hyperintense (units (u nknown) date) signal. The long unknown) and short heads of the biceps femoris tendon (unknown) (no (unknown) (unknown) intact. Iliotibial (units (unknown) date) band appears unknown) normal. (unknown) (no (unknown) (unknown) intact. The (units (un known) date) popliteus tendon unknown) appears normal; the popliteofibular ligament (unknown) (no (unknown) (unknown) intact. (units (unkno wn) date) unknown) (unknown) (no (unknown) (unknown) intrasubstance T2 (units (unknown) date) hyperintense signal unknown) at its tibial insertion. PCL is intact. (unknown) (no (unknown) (unknown) intrasubstance T2 (units (unknown) date) unknown) (unknown) (no (unknown) (unknown) involving (units (unkn own) date) unknown) (unknown) (no (unknown) (unknown) is intact. (units (unk nown) date) unknown) (unknown) (no (unknown) (unknown) knee. (units (unkno wn) date) unknown) (unknown) (no (unknown) (unknown) lateral portion of (units (unknown) date) tibial spine near unknown) distal ACL insertion. No discrete (unknown) (no (unknown) (unknown) ligament is (units (un known) date) unknown) (unknown) (no (unknown) (unknown) ligament, and (units ( unknown) date) meniscocapsular unknown) junction appear intact. Visualized portions of (unknown) (no (unknown) (unknown) medial meniscus (units (unknown) date) extending to unknown) inferior articulating surface. Lateral meniscus (unknown) (no (unknown) (unknown) meniscus is (units (un known) date) unknown) (unknown) (no (unknown) (unknown) of medial meniscus (units (unknown) date) extending to unknown) inferior articulating surface. Lateral (unknown) (no (unknown) (unknown) patellar (units (unkno wn) date) insertion. Patellar unknown) tendon is intact. (unknown) (no (unknown) (unknown) popliteal (units (unkn own) date) unknown) (unknown) (no (unknown) (unknown) posterior horn (units (unknown) date) unknown) (unknown) (no (unknown) (unknown) posterior oblique (units (unknown) date) ligament, unknown) semimembranosus tendon insertions, oblique (unknown) (no (unknown) (unknown) prominence. No (units (unknown) date) unknown) (unknown) (no (unknown) (unknown) rupture. PCL is (units (unknown) date) intact. unknown) (unknown) (no (unknown) (unknown) sagittal 3-D FLASH (units (unknown) date) with fat unknown) saturation; coronal T1 spin echo and PD fast spin (unknown) (no (unknown) (unknown) saturation, (units (un known) date) unknown) (unknown) (no (unknown) (unknown) seen. There is (units (unknown) date) suggestion of unknown) oblique tear involving medial periphery of (unknown) (no (unknown) (unknown) subtle (units (unkno wn) date) unknown) (unknown) (no (unknown) (unknown) superior (units (unkno wn) date) unknown) (unknown) (no (unknown) (unknown) synovial plicae (units (unknown) date) are incidentally unknown) noted. (unknown) (no (unknown) (unknown) the pes (units (unkno wn) date) unknown) (unknown) (no (unknown) (unknown) thickness ACL (units ( unknown) date) unknown) (unknown) (no (unknown) (unknown) thickness tear (units (unknown) date) unknown) (unknown) (no (unknown) (unknown) thickness tear. (units (unknown) date) unknown) Social History date description facility 2022-07-06 00:00 Never smoker All 2022-07-06 00:00 Never smoker All 2022-07-06 00:00 Never smoker All Vital Signs date measurement value units 2022-07-12 00:00 BP_diastolic 75 mmHg 2022-07-12 00:00 BP_systolic 132 mmHg 2022-07-12 00:00 heart_rate 54 /min 2022-07-12 00:00 respiration_rate 16 /min 2022-07-12 00:00 temperature_metric 36.28 C 2022-07-12 00:00 temperature_standard 97.3 F 2022-07-12 00:00 weight_metric 106.59 kg 2022-07-12 00:00 weight_standard 235 lb
--- NOTE | 2022-07-27 22:44 | ED Physician Documentation ---
History of Present Illness - Stated complaint Stated Complaint: KNEE PAIN & SWELLING - Chief complaint Chief Complaint: Ext Problem - History obtained from History obtained from: Patient - History of Present Illness Timing: How many days ago (2) - Additonal information Additional information: HPI from patient. c/o 2 days left knee swelling. Denies trauma. He has had gout in this knee in the past but he says this feels and appears different. He says he also has osteoarthritis in the knee. The swelling was gradual onset, steadily increasing in extent , and only becoming mildly painful today. Review of Systems Constitutional: denies: Fever Musculoskeletal: reports: Joint pain, Joint swelling Neurologic: denies: Focal weakness, Numbness PD PAST MEDICAL HISTORY - Past Medical History Past Medical History: Yes Cardiovascular: Hypertension, High cholesterol Respiratory: None Neuro: None Endocrine/Autoimmune: None GI: None : None HEENT: None Psych: None Musculoskeletal: Osteoarthritis, Gout Derm: None - Past Surgical History Past Surgical History: No - Present Medications Home Medications: Ambulatory Orders Medication Instructions Recorded Confirmed Indomethacin [Indocin] 25 - 50 mg PO Q8H PRN #30 capsule 09/01/17 07/27/22 Colchicine 0.6 mg PO BID PRN #14 tablet 08/10/21 07/27/22 Celecoxib [CeleBREX] 100 mg PO BID 07/27/22 07/27/22 Telmisartan 40 mg PO DAILY 07/27/22 07/27/22 predniSONE [Deltasone] 40 mg PO DAILY 4 Days #8 tablet 07/28/22 - Allergies Allergies/Adverse Reactions: Allergies Allergy/AdvReac Type Severity Reaction Status Date / Time terbinafine HCl * Allergy Hives Verified 07/27/22 21:27 [From Lamisil] - Social History Does the pt smoke?: No Smoking Status: Former smoker Does the pt drink ETOH?: Yes Does the pt have substance abuse?: No - Immunizations Immunizations are current?: No Immunizations: TDAP >10years/unknown - POLST Patient has POLST: No PD ED PE NORMAL - Vitals Vital signs reviewed: Yes - General General: Alert and oriented X 3, No acute distress, Well developed/nourished - Derm Derm: Normal color, Warm and dry - Extremities Extremities: No tenderness to palpate PD ED PE EXPANDED - Extremities Extremities: Other (left knee swelling without erythema, increased warmth to touch (compared to other knee). ROM intact). No: Tenderness, Limited ROM, Bruising Results - Vitals Vitals: Oxygen O2 Source Room air PD Medical Decision Making - ED course Complexity details: reviewed old records, considered differential, d/w patient ED course: atraumatic left knee swelling. gout, septic arthritis considered but unlikely given minimal pain c/o, lack of abnormal warmth/heat to touch, no erythema. Suspect osteoarthritic effusion. Departure - Departure Disposition: 01 Home, Self Care Clinical Impression: Knee effusion, left Condition: Good Instructions: ED Effusion Knee Prescriptions: predniSONE [Deltasone] 40 mg PO DAILY 4 Days #8 tablet Comments: You were given a dose of prednisone (steroid) in the emergency department, and a prescription for 4 more days of prednisone is being provided. As we discussed, at this time, I suspect the swelling of the knee is due to your osteoarthritis. Typically, if the cause were gout or an infectious cause, there is redness and the joint tends to be very warm, even hot, to the touch. Certainly, if your symptoms worsen, or if you develop these signs (redness or the joint becomes hot to the touch), you should return to the emergency department for reevaluation. Also concerning would be if you develop a fever (100.4 degrees or higher). Discharge Date/Time: 07/28/22 00:27
[2022-07-28] MEDS ORDERED: predniSONE 20 MG TABLET PO STA (00:07)
[2022-07-28 00:15] VITALS: BP 144/87
== END 2022-07-28 00:27 | disposition home or self-care (01) ==
LOC: ED 21:07
DX: M25.462 Effusion, left knee (principal); M17.12 Unilateral primary osteoarthritis, left knee; Z87.891 Personal history of nicotine dependence
CPT/HCPCS: 99282; 99283; J7512

== ENCOUNTER 2023-01-29 07:26 | Emergency (ER) | payer OTHER ==
[2023-01-29 07:50] VITALS: BP 130/73; O2SAT 98
[2023-01-29] MEDS ORDERED: oxyCODONE 5 MG TABLET PO STA (08:03)
--- NOTE | 2023-01-29 08:03 | ED Physician Documentation ---
History of Present Illness - Stated complaint Stated Complaint: LT KNEE PX - Chief complaint Chief Complaint: Ext Problem - Additonal information Additional information: Patient 52-year-old male with past medical significant for osteoarthritis, gouty arthritis presenting to the emergency department with left knee pain. Progressively worsening left knee pain for the last several days. Does report long car trip on Saturday. Denies history of blood clots or calf swelling. Denies history fever, chills , nausea, vomiting, falls or trauma to the knee. Review of Systems Constitutional: denies: Fever Eyes: denies: Loss of vision Ears: denies: Loss of hearing Nose: denies: Rhinorrhea / runny nose Throat: denies: Dental pain / toothache Cardiac: denies: Chest pain / pressure Respiratory: denies: Dyspnea GI: denies: Abdominal Pain : denies: Dysuria Skin: denies: Rash Neurologic: denies: Generalized weakness PD PAST MEDICAL HISTORY - Past Medical History Past Medical History: Yes Cardiovascular: Hypertension, High cholesterol Respiratory: None Neuro: None Endocrine/Autoimmune: None GI: None : None HEENT: None Psych: None Musculoskeletal: Osteoarthritis, Gout Derm: None - Past Surgical History Past Surgical History: No - Present Medications Home Medications: Ambulatory Orders Medication Instructions Recorded Confirmed Indomethacin [Indocin] 25 - 50 mg PO Q8H PRN #30 capsule 09/01/17 01/29/23 Colchicine 0.6 mg PO BID PRN #14 tablet 08/10/21 01/29/23 Telmisartan 40 mg PO DAILY 07/27/22 01/29/23 HYDROcod/ACETAM 5/325 [[place] 5/325] 1 tab PO Q6HR PRN #10 tab 01/29/23 Ibuprofen [Motrin] 800 mg PO Q8H PRN #30 tablet 01/29/23 - Allergies Allergies/Adverse Reactions: Allergies Allergy/AdvReac Type Severity Reaction Status Date / Time terbinafine HCl * Allergy Hives Verified 01/29/23 07:42 [From Lamisil] - Social History Does the pt smoke?: No Smoking Status: Never smoker Does the pt drink ETOH?: Yes Does the pt have substance abuse?: No - Immunizations Immunizations are current?: No Immunizations: TDAP >10years/unknown - POLST Patient has POLST: No PD ED PE NORMAL - Vitals Vital signs reviewed: Yes - General General: Alert and oriented X 3 - HEENT HEENT: Atraumatic - Respiratory Respiratory: No respiratory distress - Extremities Extremities: Other (There is decreased range of motion to the left knee secondary to pain. There is no effusion, erythema. Negative ballottement sign. Negative for anterior drawer, posterior drawer, valgus or valgus instability.) Results - Vitals Vitals: Vital Signs - 24 hr 01/29/23 07:35 Temperature 36.8 C Heart Rate 55 L Respiratory 16 Rate Blood Pressure 130/73 O2 Saturation 98 Oxygen O2 Source Room air - Labs Labs: Laboratory Tests 01/29/23 01/29/23 08:25 08:25 WBC 6.7 RBC 4.53 L Hgb 13.6 L Hct 41.3 L MCV 91.2 MCH 30.0 MCHC 32.9 RDW 11.9 L Plt Count 280 MPV 9.2 Neut # (Auto) 3.8 Lymph # (Auto) 2.2 [place] # (Auto) 0.4 Eos # (Auto) 0.3 Baso # (Auto) 0.0 Absolute Nucleated RBC 0.00 Nucleated RBC % 0.0 D-Dimer 261.0 H PD Medical Decision Making - ED course Complexity details: reviewed old records, reviewed results, re-evaluated patient, considered differential, d/w patient ED course: Patient 52-year-old male presenting with knee pain in setting known history oste oarthritis. Neurovascularly intact. No inflammation or edema that would be suggestive of septic joint. X-rays demonstrate degenerative changes. Lab work negative for elevated inflammatory markers. Mild elevation in D-dimer which did prompt ultrasonography which is negative for DVT. Patient given medication for pain control. Will discharge for follow-up with primary care with medication for symptomatic management given. Clear return precautions given. Departure - Departure Disposition: Home, Self Care Clinical Impression: Knee pain, left Prescriptions: HYDROcod/ACETAM 5/325 [[place] 5/325] 1 tab PO Q6HR PRN #10 tab PRN Reason: Pain 5-7 Ibuprofen [Motrin] 800 mg PO Q8H PRN #30 tablet PRN Reason: PAIN &/OR FEVER Comments: Thank you for allowing us to care for you today at [facility]. Today in the emergency department your evaluated for any possible life- threatening medical emergency. Your x-rays showed osteoarthritic and other degenerative changes to your knee. Your blood work did not show any indications of infection or inflammation and the ultrasound performed was negative for any blood clot. I like you to continue to use the knee immobilizer you brought with you to the emergency department as well as crutches provided in the emergency department as needed. I have sent a prescription for some pain medication to your preferred pharmacy. Otherwise I recommend elevating your affected extremity and applying ice as needed. Please monitor the area carefully for any worsening symptoms. If you develop any concerning symptoms for infection such as increased swelling, redness, heat or increasing pain around the joint please return to the emergency department. In the meantime I strongly recommend following up with your primary care doctor. Again if it anytime you develop any new or worsening symptoms please not hesitate to return. Forms: PCP List Discharge Date/Time: 01/29/23 12:46
[2023-01-29 08:29] LABS: BASOPHILS % (AUTO) 0.6 %; EOSINOPHILS # (AUTO) 0.3 10^3/uL (0.0-0.7); EOSINOPHILS % (AUTO) 3.9 %; HCT - HEMATOCRIT 41.3 % (42.0-52.0); HGB - HEMOGLOBIN 13.6 g/dL (14.0-18.0); LYMPHOCYTES # (AUTO) 2.2 10^3/uL (1.5-3.5); LYMPHOCYTES % (AUTO) 32.5 %; MEAN CORPUSCULAR HGB CONC 32.9 g/dL (32.0-36.0); MEAN CORPUSCULAR VOLUME 91.2 fL (80.0-94.0); MEAN PLATELET VOLUME 9.2 fL (7.4-11.4); MONOCYTES # (AUTO) 0.4 10^3/uL (0.0-1.0); MONOCYTES % (AUTO) 6.4 %; NEUTROPHILS # (AUTO) 3.8 10^3/uL (1.5-6.6); NEUTROPHILS % (AUTO) 56.5 %; PLT - PLATELET COUNT 280 10^3/uL (130-450); RED BLOOD COUNT 4.53 10^6/uL (4.70-6.10); RED CELL DISTRIBUTION WIDTH 11.9 % (12.0-15.0); WHITE BLOOD COUNT 6.7 x10^3/uL (4.8-10.8)
--- NOTE | 2023-01-29 08:57 | XRAY Report ---
PROCEDURE: Knee 4 View LT INDICATIONS: Knee pain TECHNIQUE: 4 views of the left knee(s) were acquired. COMPARISON: 07/12/2022 FINDINGS: Bones: No acute fracture or dislocation identified. Mild-moderate tricompartmental degenerative villalta ges present. Soft tissues: No knee joint effusion. No suspicious soft tissue calcifications . IMPRESSION: No acute bony abnormality. If there remains a high clinical concern for fracture, consider cross-sect ional imaging now. If pain persists, consider repeat x-ray in 10-14 days or cross-sectional imaging. Degenerative changes of the knee present as before. Reviewed by: Guillermo Arriaga MD on 01/29/2023 8:56 AM PDT Approved by: Guillermo Arriaga MD on 01/29/2023 8:56 AM PDT Station ID: [id number]
--- NOTE | 2023-01-29 11:03 | Ultrasound Report ---
PROCEDURE: Duplex Ext Veins Left INDICATIONS: Swelling TECHNIQUE: Real-time imaging, as well as color and pulse Doppler interrogation, were performed of the lower extr emity deep veins from the inguinal ligament to the popliteal fossa. COMPARISON: None. FINDINGS: The deep veins are normally compressible, and free of intraluminal thrombus. Color and pu lse Doppler demonstrate normal phasic intraluminal flow. There is normal augmentation response to di stal compression maneuver. IMPRESSION: No evidence of deep venous thrombosis, left lower extremity Reviewed by: Herbie Flowers MD on 01/29/2023 10:02 AM RACHAEL Approved by: Herbie Flowers MD on 01/29/2023 10:02 AM RACHAEL Station ID: [id number]
== END 2023-01-29 12:46 | disposition home or self-care (01) ==
LOC: ED 07:26
DX: M25.562 Pain in left knee (principal); I10 Essential (primary) hypertension
CPT/HCPCS: 36415; 73564; 85025; 85379; 93971; 99283; 99284; A9270

== ENCOUNTER 2023-01-31 01:37 | Emergency (ER) | payer OTHER ==
[2023-01-31] MEDS ORDERED: oxyCODONE 5 MG TABLET PO STA (01:55)
[2023-01-31] MEDS ORDERED: BUFFERED LIDOCAINE 10 ML SYRINGE SUBQ STA (01:55)
[2023-01-31] MEDS ORDERED: KETOROLAC 30 MG/ML VIAL IM STA (02:02)
--- NOTE | 2023-01-31 02:18 | ED Physician Documentation ---
PD HPI LOWER EXT INJURY - Stated complaint Stated Complaint: L KNEE PX - Chief complaint Chief Complaint: Ext Problem - History obtained from History obtained from: Patient - Additional information Additional information: 52-year-old male with history of gout, hypertension presents for left knee pain and swelling. Of note, patient was seen 48 hours ago for same, he underwent x- ray and ultrasound imaging as well as laboratory work up, which was unremarkable. He was discharged with pain medications and a knee immobilizer. Patient states that he has been sleeping on the couch due to his discomfort. At approximately 1:30 AM he tweaked his knee which caused a "spasm" of pain to radiate upward in his body. Denies recent trauma, denies history of knee operations. States that he used to get cortisone injections, however his last injection was greater than 1 year ago. Unable to bend knee due to pain. Review of Systems Constitutional: denies: Fever, Chills Ears: denies: Loss of hearing GI: denies: Abdominal Pain, Nausea, Vomiting : denies: Dysuria, Frequency Musculoskeletal: reports: Joint pain, Joint swelling. denies: Neck pain, Back pain, Extremity pain Neurologic: denies: Generalized weakness, Focal weakness, Numbness PD PAST MEDICAL HISTORY - Past Medical History Cardiovascular: Hypertension, High cholesterol Respiratory: None Neuro: None Endocrine/Autoimmune: None GI: None : None HEENT: None Psych: None Musculoskeletal: Osteoarthritis, Gout Derm: None - Past Surgical History Past Surgical History: No - Present Medications Home Medications: Ambulatory Orders Medication Instructions Recorded Confirmed Indomethacin [Indocin] 25 - 50 mg PO Q8H PRN #30 capsule 09/01/17 01/29/23 Colchicine 0.6 mg PO BID PRN #14 tablet 08/10/21 01/29/23 Telmisartan 40 mg PO DAILY 07/27/22 01/29/23 HYDROcod/ACETAM 5/325 [[place] 5/325] 1 tab PO Q6HR PRN #10 tab 01/29/23 Ibuprofen [Motrin] 800 mg PO Q8H PRN #30 tablet 01/29/23 Naproxen 250 mg PO BID PRN #15 tablet 01/31/23 predniSONE [Deltasone] 20 mg PO [id number] #21 tab 01/31/23 - Allergies Allergies/Adverse Reactions: Allergies Allergy/AdvReac Type Severity Reaction Status Date / Time terbinafine HCl * Allergy Hives Verified 01/29/23 07:42 [From Lamisil] - Social History Does the pt smoke?: No Smoking Status: Never smoker Does the pt drink ETOH?: Yes Does the pt have substance abuse?: No - Immunizations Immunizations are current?: No Immunizations: TDAP >10years/unknown - POLST Patient has POLST: No PD ED PE NORMAL - Vitals Vital signs reviewed: Yes - General General: Alert and oriented X 3, Well developed/nourished - HEENT HEENT: Atraumatic - Neck Neck: Supple, no meningeal sign - Cardiac Cardiac: RRR, No murmur, Strong equal pulses - Respiratory Respiratory: No respiratory distress, Clear bilaterally - Abdomen Abdomen: Soft, Non tender, Non distended - Derm Derm: Normal color, Warm and dry, No rash - Extremities Extremities: Other (L knee swelling, warm to touch, no erythema. 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, No motor deficit, Normal speech Results - Vitals Vitals: Vital Signs - 24 hr 01/31/23 01/31/23 01/31/23 01:52 03:23 04:06 Temperature 36.7 C Heart Rate 79 66 59 L Respiratory 18 20 18 Rate Blood Pressure 143/102 H 133/75 H 121/69 O2 Saturation 99 96 97 Oxygen O2 Source Room air - Labs Labs: Microbiology 01/31/23 03:04 Body Fluid Culture - Preliminary Synovial Fluid Laboratory Tests 01/31/23 01/31/23 01/31/23 03:04 03:04 03:30 WBC 9.3 RBC 4.36 L Hgb 13.3 L Hct 40.0 L MCV 91.7 MCH 30.5 MCHC 33.3 RDW 11.9 L Plt Count 283 MPV 9.2 Neut # (Auto) 6.9 H Lymph # (Auto) 1.6 [place] # (Auto) 0.6 Eos # (Auto) 0.1 Baso # (Auto) 0.0 Absolute Nucleated RBC 0.00 Nucleated RBC % 0.0 ESR Sodium Potassium Chloride Carbon Dioxide Anion Gap BUN Creatinine Estimated GFR (MDRD) Glucose Calcium Total Bilirubin AST ALT Alkaline Phosphatase C-Reactive Protein Total Protein Albumin Globulin Albumin/Globulin Ratio Fluid Source SYNOVIAL Fluid Color YELLOW Fluid Clarity CLOUDY Fluid WBC 05954 Fluid RBC 93390 Fluid Neutrophils % 85 Fluid Lymphocytes % 15 Fluid Monocytes % 0 Fluid Eosinophils % 0 Fluid Macrophages % 0 Fld Mesothelial Cell % 0 Fluid Crystals MONOSODIUM URATE 01/31/23 01/31/23 03:30 03:30 WBC RBC Hgb Hct MCV MCH MCHC RDW Plt Count MPV Neut # (Auto) Lymph # (Auto) [place] # (Auto) Eos # (Auto) Baso # (Auto) Absolute Nucleated RBC Nucleated RBC % ESR 31 H Sodium 140 Potassium 4.5 Chloride 106 Carbon Dioxide 28 Anion Gap 6.0 BUN 18 Creatinine 1.0 Estimated GFR (MDRD) 78 L Glucose 115 H Calcium 9.6 Total Bilirubin 0.8 AST 25 ALT 38 Alkaline Phosphatase 71 C-Reactive Protein 9.8 Total Protein 7.0 Albumin 4.0 Globulin 3.0 Albumin/Globulin Ratio 1.3 Fluid Source Fluid Color Fluid Clarity Fluid WBC Fluid RBC Fluid Neutrophils % Fluid Lymphocytes % Fluid Monocytes % Fluid Eosinophils % Fluid Macrophages % Fld Mesothelial Cell % Fluid Crystals Procedures - Arthrocentesis Joint: Knee Preparation: Consent obtained, Sterile prep and drape, Ultrasound used Anesthesia: Lidocaine 1% Fluid: Sent for crystals, Sent for culture, Fluid obtained - cc (40), Sent for glucose, Sent for gram stain, Other (straw colored, pink-tinged with blood), Sent for protein Aftercare: Dressing applied, No complications, Patient tolerated well PD Medical Decision Making - ED course Complexity details: reviewed old records, reviewed results, re-evaluated fiorella ent, considered differential, d/w patient, d/w family ED course: Worsening pain and swelling of knee. Recent negative x-rays and ultrasound imaging. It is slightly warm to the touch and he has severely decreased range of motion due to pain. Extensive history of gout, will draw fluid analysis. There is a modest amount of elevated WBCs present and synovial fluid analysis. No Gram stain seen, monosodium urate crystals identified on crystal studies. At this point in time fluid studies indicate this is gouty arthritis of the knee. Patient and his were counseled of results at bedside. Will discharge with anti-inflammatories and steroids. Patient was counseled on low purine diet options and paperwork sent with patient on low purine diet. Patient states that he has a primary care appointment later this morning and he will see his doctor at that time. Additional referral given to orthopedic surgery. Patient given strict ED return precautions. Departure - Departure Disposition: 01 Home, Self Care Clinical Impression: Gouty arthritis Condition: Stable Instructions: ED Arthritis Gout, ANTI-INFLAMMATORY, General, ED Diet Gout Follow-Up: Valentino Davis MD [Provider Admit Priv/Credential] - Prescriptions: predniSONE [Deltasone] 20 mg PO [id number] #21 tab Naproxen 250 mg PO BID PRN #15 tablet PRN Reason: Pain Comments: You were seen today for pain and swelling in your knee. Based on your lab results it appears that you have a gout flare in your left knee. You had uric acid crystals in the fluid that we removed from your knee, and there were no bacteria or other organisms seen on Gram stain analysis. You are being discharged on steroids and anti-inflammatories. Please make sure that you continue to wear your knee brace and take all of these medications as prescribed. In addition follow a low purine diet, instructions will be provided in your paperwork. Forms: PCP List
[2023-01-31 03:37] LABS: BASOPHILS % (AUTO) 0.3 %; EOSINOPHILS # (AUTO) 0.1 10^3/uL (0.0-0.7); EOSINOPHILS % (AUTO) 1.3 %; HGB - HEMOGLOBIN 13.3 g/dL (14.0-18.0); LYMPHOCYTES # (AUTO) 1.6 10^3/uL (1.5-3.5); LYMPHOCYTES % (AUTO) 17.7 %; MEAN CORPUSCULAR HEMOGLOBIN 30.5 pg (27.0-31.0); MEAN CORPUSCULAR HGB CONC 33.3 g/dL (32.0-36.0); MEAN CORPUSCULAR VOLUME 91.7 fL (80.0-94.0); MEAN PLATELET VOLUME 9.2 fL (7.4-11.4); MONOCYTES # (AUTO) 0.6 10^3/uL (0.0-1.0); MONOCYTES % (AUTO) 6.2 %; NEUTROPHILS # (AUTO) 6.9 10^3/uL (1.5-6.6); NEUTROPHILS % (AUTO) 74.2 %; PLT - PLATELET COUNT 283 10^3/uL (130-450); RED BLOOD COUNT 4.36 10^6/uL (4.70-6.10); RED CELL DISTRIBUTION WIDTH 11.9 % (12.0-15.0); WHITE BLOOD COUNT 9.3 x10^3/uL (4.8-10.8)
[2023-01-31 03:43] LABS: BF CLARITY CLOUDY; BF COLOR YELLOW; BF SOURCE SYNOVIAL; CC,BF RBC 12000 /mm^3; CC,BF WBC 14798 /mm^3
[2023-01-31 03:54] LABS: ALBUMIN/GLOBULIN RATIO 1.3 (1.0-2.2); BILIRUBIN,TOTAL 0.8 mg/dL (0.2-1.0); CALCIUM 9.6 mg/dL (8.5-10.3); CRP - C-REACTIVE PROTEIN 9.8 mg/dL (<0.5); POTASSIUM 4.5 mmol/L (3.5-4.5)
[2023-01-31 04:00] LABS: EOSINOPHILS %,BODY FLUID 0 %; LYMPHOCYTES %,BODY FLUID 15 %; MACROPHAGES %,BODY FLUID 0 %; MESOTHELIAL %, BF 0 %; MONOCYTES %,BODY FLUID 0 %; NEUTROPHILS %, BF 85 %
[2023-01-31 04:11] VITALS: BP 121/69; O2SAT 97
[2023-02-01 08:10] LABS: PROTEIN BODY FLUID 4.7 g/dL (.)
== END 2023-01-31 04:15 | disposition home or self-care (01) ==
LOC: ED 01:37
DX: M10.9 Gout, unspecified (principal); I10 Essential (primary) hypertension
CPT/HCPCS: 20610; 36415; 80053; 83615; 84157; 85025; 85651; 86140; 87070; 87205; 89051; 89060; 96372; 99283; 99284; A9270

== ENCOUNTER 2023-06-23 08:57 | Emergency (ER) | payer OTHER ==
[2023-06-23 09:28] VITALS: BP 139/72; O2SAT 98
--- NOTE | 2023-06-23 11:34 | ED Physician Documentation ---
PD HPI HEENT - Stated complaint Stated Complaint: LT EAR CLOGGED - Chief complaint Chief Complaint: Heent - History obtained from History obtained from: Patient - Additional information Additional information: 52-year-old male presents with sensation of left ear being clogged as well as some left ear pain, he is also had several days of cough and nasal congestion. He apparently had a fever on the first day but none since according to . He has not had any shortness of breath, no chest pain, no abdominal pain nausea vomiting or diarrhea. He has not noted any ear drainage. He has been around his who had symptoms of a cold prior to him falling ill. Review of Systems Constitutional: reports: Fever. denies: Chills Ears: reports: Loss of hearing, Ear pain. denies: Drainage/discharge Nose: reports: Congestion, Sinus pressure / pain Throat: reports: Reviewed and negative Cardiac: reports: Reviewed and negative Respiratory: reports: Cough. denies: Dyspnea, Hemoptysis, Wheezing GI: reports: Reviewed and negative PD PAST MEDICAL HISTORY - Past Medical History Past Medical History: Yes Cardiovascular: Hypertension, High cholesterol Respiratory: None Neuro: None Endocrine/Autoimmune: None GI: None : None HEENT: None Psych: None Musculoskeletal: Osteoarthritis, Gout Derm: None - Past Surgical History Past Surgical History: No General: Colonoscopy - Present Medications Home Medications: Ambulatory Orders Medication Instructions Recorded Confirmed Indomethacin [Indocin] 25 - 50 mg PO Q8H PRN #30 capsule 09/01/17 06/23/23 Colchicine 0.6 mg PO BID PRN #14 tablet 08/10/21 06/23/23 Telmisartan 40 mg PO DAILY 07/27/22 06/23/23 Amox/Clav 875/125 [Augmentin] 1 each PO Q12H #14 tablet 06/23/23 - Allergies Allergies/Adverse Reactions: Allergies Allergy/AdvReac Type Severity Reaction Status Date / Time terbinafine HCl * Allergy Hives Verified 06/23/23 09:14 [From Lamisil] - Social History Does the pt smoke?: No Smoking Status: Never smoker Does the pt drink ETOH?: No Does the pt have substance abuse?: No - Immunizations Immunizations are current?: Yes Immunizations: TDAP >10years/unknown - POLST Patient has POLST: No PD ED PE NORMAL - Vitals Vital signs reviewed: Yes - General General: Alert and oriented X 3, No acute distress, Well developed/nourished - HEENT HEENT: Atraumatic, Moist mucous membranes, Pharynx benign, Other (Left TM is bulging, there is a small pustule on the TM and it is reddened. The canal appears normal. The TM remains intact. Right TM normal.) - Neck Neck: Supple, no meningeal sign, No adenopathy - Cardiac Cardiac: RRR, No murmur - Respiratory Respiratory: No respiratory distress, Clear bilaterally - Derm Derm: Normal color, Warm and dry, No rash Results - Vitals Vitals: Vital Signs - 24 hr 06/23/23 09:14 Temperature 36.3 C L Heart Rate 64 Respiratory 16 Rate Blood Pressure 139/72 H O2 Saturation 98 Oxygen O2 Source Room air PD Medical Decision Making - ED course Complexity details: considered differential, d/w patient, d/w family ED course: 52-year-old male presented with left ear pain and decreased hearing. On exam, he has a bulging left TM with erythema and suspect that this is an acute otitis media. His lungs are clear and the remainder of his physical exam is reassuring. I do not think any additional lab testing is indicated and we will treat his acute otitis media with Augmentin twice a day for 7 days. He was advised of other supportive measures including decongestants, cough or cold medication Tylenol ibuprofen. Anticipate improvement in next few days if he does not improve he can follow-up with his PCP or if at any point things are worsening, return to the ER. Patient discharged home in stable condition. Departure - Departure Disposition: 01 Home, Self Care Clinical Impression: Left otitis media Qualifiers: Otitis media type: suppurative Chronicity: acute Recurrence: not specified as recurrent Spontaneous tympanic membrane rupture: without spontaneous rupture Qualified Code(s): H66.002 - Acute suppurative otitis media without spontaneous rupture of ear drum, left ear Condition: Good Instructions: ED Otitis Media Acute Adult Prescriptions: Amox/Clav 875/125 [Augmentin] 1 each PO Q12H #14 tablet Comments: You have a left ear infection. This is a middle ear infection over the tympanic membrane. I am giving you antibiotics which I would like you to take for 7 days, you can take ibuprofen, Tylenol, and [id number] cold medication in addition for a likely viral upper respiratory infection as well. Anticipate improvement in the next 3 to 5 days though your hearing may take a little bit longer to come back to baseline. Please follow-up with your primary doctor in a week or so if you are still having symptoms or return to the ER if worsening. Forms: PCP List Discharge Date/Time: 06/23/23 11:36
== END 2023-06-23 11:36 | disposition home or self-care (01) ==
LOC: ED 08:57
DX: H66.002 Acute suppurative otitis media without spontaneous rupture of ear drum, left ear (principal); I10 Essential (primary) hypertension
CPT/HCPCS: 99282; 99283

== ENCOUNTER 2023-06-25 23:55 | Emergency (ER) | payer OTHER ==
[2023-06-26 00:13] VITALS: BP 142/93; O2SAT 98
[2023-06-26] MEDS ORDERED: HYDROcod/ACETAM 5/325 MG TABLET PO STA (01:24)
[2023-06-26] MEDS ORDERED: predniSONE 20 MG TABLET PO STA (01:24)
[2023-06-26] MEDS ORDERED: INDOMETHACIN 25 MG CAPSULE PO STA (01:24)
--- NOTE | 2023-06-26 01:31 | ED Physician Documentation ---
History of Present Illness - Stated complaint Stated Complaint: BILATERAL ANKLE PX - Chief complaint Chief Complaint: Ext Problem - History obtained from History obtained from: Patient - Additonal information Additional information: The pt comes to the ED with cC of bilateral ankle and foot pain for the past few days, consistent with his prior episodes of gout. He states that he is out of his indomethacin. No other complaints at this time. PD PAST MEDICAL HISTORY - Past Medical History Cardiovascular: Hypertension, High cholesterol Respiratory: None Neuro: None Endocrine/Autoimmune: None GI: None : None HEENT: None Psych: None Musculoskeletal: Osteoarthritis, Gout Derm: None - Past Surgical History Past Surgical History: No General: Colonoscopy - Present Medications Home Medications: Ambulatory Orders Medication Instructions Recorded Confirmed Indomethacin [Indocin] 25 - 50 mg PO Q8H PRN #30 capsule 09/01/17 06/26/23 Telmisartan 40 mg PO DAILY 07/27/22 06/26/23 Amox/Clav 875/125 [Augmentin] 1 each PO Q12H #14 tablet 06/23/23 06/26/23 Colchicine 0.6 mg PO DAILY 06/26/23 06/26/23 HYDROcod/ACETAM 5/325 [[place] 5/325] 1 - 2 tablet PO Q6H PRN #14 tablet 06/26/23 Indomethacin [Indocin] 25 mg PO BIDWM PRN #30 cap 06/26/23 predniSONE [Deltasone] 10 mg PO [id number] #42 tab 06/26/23 - Allergies Allergies/Adverse Reactions: Allergies Allergy/AdvReac Type Severity Reaction Status Date / Time terbinafine HCl * Allergy Hives Verified 06/26/23 00:08 [From Lamisil] - Social History Does the pt smoke?: No Smoking Status: Never smoker Does the pt drink ETOH?: Yes Does the pt have substance abuse?: No - Immunizations Immunizations are current?: No Immunizations: TDAP >10years/unknown - POLST Patient has POLST: No PD ED PE NORMAL - Vitals Vital signs reviewed: Yes - General General: Alert and oriented X 3, No acute distress, Well developed/nourished - HEENT HEENT: Atraumatic, PERRL, EOMI, Moist mucous membranes - Neck Neck: Supple, no meningeal sign - Cardiac Cardiac: Strong equal pulses - Respiratory Respiratory: No respiratory distress, Clear bilaterally - Derm Derm: Warm and dry, No rash, Other (Mild erythema bilateral feet/ankles. No induration or fluctuance.) - Extremities Extremities: No deformity, Other (moderate edema, bilateral feet ankles. TTP over ankles.) - Neuro Neuro: Alert and oriented X 3 - Psych Psych: Normal mood, Normal affect Results - Vitals Vitals: Oxygen O2 Source Room air PD Medical Decision Making - ED course Complexity details: considered differential, d/w patient ED course: The pt had bilateral ankle swelling and pain, similar to prior episodes of gout. He had no trauma history, and no indicators of infection. I have given the pt prescriptions for indomethacin and analgesia, and we have discussed the usual indications for return. Departure - Departure Disposition: 01 Home, Self Care Clinical Impression: Gout Qualifiers: Gout site: ankle Gout etiology: unspecified cause Chronicity: acute Laterality: unspecified laterality Qualified Code(s): M10.9 - Gout, unspecified Condition: Stable Instructions: ED Arthritis Gout Prescriptions: predniSONE [Deltasone] 10 mg PO [id number] #42 tab Indomethacin [Indocin] 25 mg PO BIDWM PRN #30 cap PRN Reason: gout HYDROcod/ACETAM 5/325 [[place] 5/325] 1 - 2 tablet PO Q6H PRN #14 tablet PRN Reason: Pain Comments: Your prescriptions have been electronically transmitted to the [facility] pharmacy in [place]. You have been given first doses tonight of your medications. It is possible that the antibiotic triggered a gout flareup, but it is certainly possible and more likely that it was triggered by other things. As such, you should continue the antibiotics until the course is complete. You may simultaneously take the medication for gout, as well. Please follow-up with your primary doctor as needed. Forms: PCP List Discharge Date/Time: 06/26/23 01:52
== END 2023-06-26 01:52 | disposition home or self-care (01) ==
LOC: ED 23:55
DX: M10.9 Gout, unspecified (principal); I10 Essential (primary) hypertension; E78.00 Pure hypercholesterolemia, unspecified; Z79.899 Other long term (current) drug therapy
CPT/HCPCS: 99283; A9270; J7512

== ENCOUNTER 2023-11-12 17:23 | Emergency (ER) | payer OTHER ==
[2023-11-12 17:33] VITALS: BP 166/76; O2SAT 99
--- NOTE | 2023-11-12 17:39 | ED Physician Documentation ---
PD HPI ABD PAIN - Stated complaint Stated Complaint: /BLOOD - Chief complaint Chief Complaint: Abd Pain - History obtained from History obtained from: Patient - Additional information Additional information: 52-year-old gentleman with history of gout developed a gout flare today. He took a colchicine and indomethacin. Several hours later he had the urge to poop and had bloody diarrhea and has had 3 more episodes since. He had some abdominal upset which feels better now. States last colonoscopy 4 years ago with some polyps. No sick contacts, recent travel, recent antibiotic use. PD PAST MEDICAL HISTORY - Past Medical History Past Medical History: Yes Cardiovascular: Hypertension, High cholesterol Respiratory: None Neuro: None Endocrine/Autoimmune: None GI: None : None HEENT: None Psych: None Musculoskeletal: Osteoarthritis, Gout Derm: None - Past Surgical History Past Surgical History: No General: Colonoscopy - Present Medications Home Medications: Ambulatory Orders Medication Instructions Recorded Confirmed Telmisartan 40 mg PO DAILY 07/27/22 11/12/23 Colchicine 0.6 mg PO DAILY 06/26/23 11/12/23 Indomethacin [Indocin] 25 mg PO BIDWM PRN #30 cap 06/26/23 11/12/23 Cyanocobalamin (Vitamin B-12) 5,000 mcg PO DAILY 11/12/23 11/12/23 [Vitamin B12] - Allergies Allergies/Adverse Reactions: Allergies Allergy/AdvReac Type Severity Reaction Status Date / Time terbinafine HCl * Allergy Hives Verified 11/12/23 17:30 [From Lamisil] - Social History Does the pt smoke?: No Smoking Status: Never smoker Does the pt drink ETOH?: Yes Does the pt have substance abuse?: No - Immunizations Immunizations are current?: No Immunizations: TDAP >10years/unknown - POLST Patient has POLST: No PD ED PE NORMAL - Vitals Vital signs reviewed: Yes - General General: Alert and oriented X 3, No acute distress - Cardiac Cardiac: RRR, No murmur - Respiratory Respiratory: No respiratory distress, Clear bilaterally - Abdomen Abdomen: Soft, Non tender - Neuro Neuro: Alert and oriented X 3 Results - Vitals Vitals: Vital Signs - 24 hr 11/12/23 17:26 Temperature 36.3 C L Heart Rate 49 L Respiratory 16 Rate Blood Pressure 166/76 H O2 Saturation 99 Oxygen O2 Source Room air - Labs Labs: Microbiology 11/12/23 17:48 Occult Blood - Final Stool Laboratory Tests 11/12/23 11/12/23 11/12/23 17:45 17:54 17:54 WBC 8.3 RBC 4.90 Hgb 14.6 Hct 44.4 MCV 90.6 MCH 29.8 MCHC 32.9 RDW 12.2 Plt Count 287 MPV 9.7 Neut # (Auto) 4.9 Lymph # (Auto) 2.6 Vilas # (Auto) 0.5 Eos # (Auto) 0.3 Baso # (Auto) 0.0 Absolute Nucleated RBC 0.00 Nucleated RBC % 0.0 PT 11.8 INR 1.1 Sodium Potassium Chloride Carbon Dioxide Anion Gap BUN Creatinine Estimated GFR (MDRD) Glucose Calcium Total Bilirubin AST ALT Alkaline Phosphatase Total Protein Albumin Globulin Albumin/Globulin Ratio Lipase Blood Type Blood Type Recheck A POSITIVE Antibody Screen 11/12/23 11/12/23 11/12/23 17:54 18:01 19:48 WBC RBC Hgb 14.2 Hct 41.4 L MCV MCH MCHC RDW Plt Count MPV Neut # (Auto) Lymph # (Auto) Vil[place] # (Auto) Eos # (Auto) Baso # (Auto) Absolute Nucleated RBC Nucleated RBC % PT INR Sodium 137 Potassium 4.2 Chloride 104 Carbon Dioxide 28 Anion Gap 5.0 L BUN 21 H Creatinine 1.1 Estimated GFR (MDRD) 70 L Glucose 108 H Calcium 9.4 Total Bilirubin 0.6 AST 25 ALT 46 Alkaline Phosphatase 62 Total Protein 7.3 Albumin 4.6 Globulin 2.7 Albumin/Globulin Ratio 1.7 Lipase 30 Blood Type A POSITIVE Blood Type Recheck Antibody Screen NEGATIVE PD Medical Decision Making - ED course ED course: 52-year-old gentleman with a GI bleed after taking Indocin and colchicine today. Benign exam. I was able to view a stool sample that he produced here. It was maroonish and thin. Small in volume, may be 50 to 100 mL. He presents with some bloody stools. His initial H&H was very reassuring at 14.6/44 with normal INR and unremarkable CMP. He was observed in the department a repeat H&H was done with only minimal drop and during that time he had no further bowel movements other than the first BM he had in the department here. This is reassuring that the bleeding is slow to stopped. Close follow-up was advised. Departure - Departure Disposition: Home, Self Care Clinical Impression: Hematochezia Condition: Good Record reviewed to determine appropriate education?: Yes Instructions: ED Hematochezia Stable Comments: You are seen today for bloody stools. It seems like it is slowing down or stopping on its own. If 24 hours goes by and you are still having dark or tarry stools or bloody stools or if you start to feel weak or dizzy or short of breath please return for reevaluation. Follow-up with your primary care physician. Even though its only been a few years since her last colonoscopy, she may want to schedule a new one. Forms: PCP List
[2023-11-12 18:05] LABS: BASOPHILS % (AUTO) 0.5 %; EOSINOPHILS # (AUTO) 0.3 10^3/uL (0.0-0.7); EOSINOPHILS % (AUTO) 3.5 %; HCT - HEMATOCRIT 44.4 % (42.0-52.0); HGB - HEMOGLOBIN 14.6 g/dL (14.0-18.0); LYMPHOCYTES # (AUTO) 2.6 10^3/uL (1.5-3.5); LYMPHOCYTES % (AUTO) 31.1 %; MEAN CORPUSCULAR HEMOGLOBIN 29.8 pg (27.0-31.0); MEAN CORPUSCULAR HGB CONC 32.9 g/dL (32.0-36.0); MEAN CORPUSCULAR VOLUME 90.6 fL (80.0-94.0); MEAN PLATELET VOLUME 9.7 fL (7.4-11.4); MONOCYTES # (AUTO) 0.5 10^3/uL (0.0-1.0); MONOCYTES % (AUTO) 5.6 %; NEUTROPHILS # (AUTO) 4.9 10^3/uL (1.5-6.6); NEUTROPHILS % (AUTO) 58.9 %; PLT - PLATELET COUNT 287 10^3/uL (130-450); RED CELL DISTRIBUTION WIDTH 12.2 % (12.0-15.0); WHITE BLOOD COUNT 8.3 x10^3/uL (4.8-10.8)
[2023-11-12 18:12] LABS: INR 1.1 (0.8-1.2); PT - PROTHROMBIN TIME 11.8 secs (9.9-12.6)
[2023-11-12 18:32] LABS: ALBUMIN 4.6 g/dL (3.2-5.5); ALBUMIN/GLOBULIN RATIO 1.7 (1.0-2.2); BILIRUBIN,TOTAL 0.6 mg/dL (0.2-1.0); CALCIUM 9.4 mg/dL (8.5-10.3); CREATININE 1.1 mg/dL (0.6-1.3); POTASSIUM 4.2 mmol/L (3.5-4.5); TOTAL PROTEIN 7.3 g/dL (6.4-8.9)
[2023-11-12 19:54] LABS: HCT - HEMATOCRIT 41.4 % (42.0-52.0); HGB - HEMOGLOBIN 14.2 g/dL (14.0-18.0)
== END 2023-11-12 20:18 | disposition home or self-care (01) ==
LOC: ED 17:23
DX: K92.1 Melena (principal); M10.9 Gout, unspecified; I10 Essential (primary) hypertension; E78.00 Pure hypercholesterolemia, unspecified
CPT/HCPCS: 36415; 80053; 82272; 83690; 85014; 85018; 85025; 85610; 86850; 86900; 86901; 87045; 87046; 87427; 99283